=== PATIENT | female | born 1955 | race Caucasian/White ===

== ENCOUNTER 2017-07-19 13:33 | Outpatient (CLI) | payer OTHER ==
[2017-07-19 15:17] LABS: Anion Gap 14 mmol/L (10-20); BUN (Urea Nitrogen) 12 mg/dL (9.8-20.1); Calc. Creatinine Clearance 0 mL/min (70-130); Calcium 9.3 mg/dL (7.8-10.44); Carbon Dioxide 26 mmol/L (23-31); Chloride 103 mmol/L (98-107); Estimated GFR-MDRD 60
== END 2017-07-19 13:34 | disposition home or self-care (01) ==
LOC: LABBT 13:33
PROVIDERS: ATTEND Neurological Surgery
DX: Z01.818 Encounter for other preprocedural examination (principal); I77.6 Arteritis, unspecified
CPT/HCPCS: 80048

== ENCOUNTER 2017-07-21 06:33 | Day surgery (SDC) | payer OTHER ==
[2017-07-19 14:08] VITALS: BMI 24.7
--- NOTE | 2017-07-21 08:41 | PRG ---
DATE OF SERVICE: 07/21/2017 Ms. Nazario is a 61-year-old female referred to me by Dr. Devi with a recent history of cerebral i schemic events. She had an MRI performed of the head which showed multifocal distribution of small i nfarcts. This raised the concern after a more thorough evaluation of possible vasculitis. She was r eferred to me for the purposes of obtaining a diagnostic cerebral angiogram to rule out vasculitis. I met with Ms. Nazario today preprocedurally to discuss with her the imaging, the planned procedure wh ich is that of diagnostic cerebral angiography to be performed under local anesthesia. I reviewed wi th her the procedure in detail as well as all of the risks, benefits and alternatives. I also review ed with her and her sister the recovery plan following a procedure such as this. I answered all thei r questions. The patient provided informed consent.
[2017-07-21] MEDS ORDERED: Heparin 10,000 UNITS/1 ML VIAL ONE (09:08)
--- NOTE | 2017-07-21 16:12 | CCL ---
DATE: 07/21/17 SURGEONS: Sherif Stewart M.D. JEWELRY BENCH WORKER: None. INDICATION: Obtain diagnosis. DIAGNOSIS: Multifocal infarct. Suspicion for vasculitis. ANESTHESIA: Local. PROCEDURE: Diagnostic cerebral angiogram. TECHNIQUE: The patient was brought into the angiogram suite and placed on the table in supine position. Both gr oins were prepped and draped in usual sterile fashion. 1% lidocaine was used to inject the right elmo in. A 5 Romanian micropuncture set was used to gain access to the right common femoral artery. Using the Seldinger technique, the needle was removed and a 5-Romanian sheath was placed. A 5-Romanian diagnos tic catheter passed over a vitaMedMDson wire and was advanced into the aortic arch for the left internal c arotid artery was selectively catheterized. An AP and lateral angiogram was performed. The catheter was then placed within the right internal carotid artery were in AP and lateral angiogram was perfor med. All catheters were then removed. Hemostasis was maintained with manual compression. The proce dure came to an end without complication. IMPRESSION: The patient underwent successful cerebral angiography of both the left and right internal carotid art ady. There is no radiographic evidence for vasculitis as evidenced by segmental narrowing. There ap pears to be normal flow throughout all of her cerebral vasculature in the anterior circulation.
== END 2017-07-21 14:08 | disposition home or self-care (01) ==
LOC: CCL 06:33
PROVIDERS: ATTEND Neurological Surgery
DX: I77.6 Arteritis, unspecified (principal); Z79.82 Long term (current) use of aspirin; Z79.890 Hormone replacement therapy; Z79.52 Long term (current) use of systemic steroids; Z79.899 Other long term (current) drug therapy
CPT/HCPCS: 36215; 36216; 36223; C1769; J1644